=== PATIENT | male | born 1975 | race Caucasian/White ===

== ENCOUNTER 2017-06-25 00:49 | Emergency (ER) | payer OTHER, MEDICAID | END 2017-06-25 08:16 | disposition home or self-care (01) | LOC: FTE 00:49 | DX: J20.9 Acute bronchitis, unspecified (principal); J45.909 Unspecified asthma, uncomplicated; F17.210 Nicotine dependence, cigarettes, uncomplicated | CPT/HCPCS: 71045; 99284-25 ==

== ENCOUNTER 2017-08-30 23:58 | Emergency (ER) | payer SELFPAY, OTHER | END 2017-08-31 06:00 | disposition left against medical advice (07) | LOC: FTE 23:58 | DX: Z53.21 Procedure and treatment not carried out due to patient leaving prior to being seen by health care provider (principal) ==